=== PATIENT | female | born 1995 | race Caucasian/White ===

== ENCOUNTER 2018-03-14 13:28 | Emergency (ER) | payer SELFPAY ==
[2018-03-14 13:34] VITALS: BP 126/72
--- NOTE | 2018-03-14 13:37 | ER Document Report ---
HPI - HPI Patient complains to provider of: poison paolo Onset: Yesterday Onset/Duration: Gradual Pain Level: 3 Context: 22 yo female believes she has poison paolo after working in yard, pulling luz. Itchy right face and some on arms, and buttocks. Associated Symptoms: None Exacerbated by: Denies Relieved by: Denies Similar symptoms previously: Yes Recently seen / treated by doctor: No - ROS ROS below otherwise negative: Yes Systems Reviewed and Negative: Yes All other systems reviewed and negative Past Medical History - General Information source: Patient - Social History Smoking Status: Current Every Day Smoker Frequency of alcohol use: None Drug Abuse: None Lives with: Spouse/Significant other Family History: Reviewed & Not Pertinent - Medical History Medical History: Negative Surgical Hx: Negative - Immunizations Immunizations up to date: Yes Hx Diphtheria, Pertussis, Tetanus Vaccination: Yes Vertical Provider Document - CONSTITUTIONAL Agree With Documented VS: Yes Exam Limitations: No Limitations General Appearance: No Apparent Distress - INFECTION CONTROL TRAVEL OUTSIDE OF THE [place] IN LAST 30 DAYS: No - HEENT HEENT: Normocephalic - NECK Neck: Supple - MUSCULOSKELETAL/EXTREMETIES Musculoskeletal/Extremeties: MAEW - NEURO Level of Consciousness: Awake - DERM Integumentary: Rash - minimal red linear rash right face, upper arms- questionable poison paolo Course - Vital Signs Vital signs: Temp Pulse Resp BP Pulse Ox 98.5 F 80 16 126/72 H 98 03/14/18 13:33 03/14/18 13:33 03/14/18 13:33 03/14/18 13:33 03/14/18 13:33 Discharge - Discharge Clinical Impression: Poison paolo Condition: Good Disposition: HOME, SELF-CARE Instructions: Contact Dermatitis ([facility]), Use of Diphenhydramine Additional Instructions: steroid for 1 week to er if worse wash hands well to er if worse Prescriptions: Prednisone [Deltasone 10 mg Tablet] 10 mg PO ASDIR PRN #21 tablet PRN Reason: Referrals: ERIS ADAMS DO [ACTIVE STAFF] - Follow up as needed
== END 2018-03-14 13:43 | disposition home or self-care (01) ==
LOC: ER 13:28
DX: L23.7 Allergic contact dermatitis due to plants, except food (principal); F17.200 Nicotine dependence, unspecified, uncomplicated
CPT/HCPCS: 99282

== ENCOUNTER 2018-04-05 12:16 | Emergency (ER) | payer SELFPAY ==
[2018-04-05 12:29] VITALS: BP 129/82
[2018-04-05] MEDS ORDERED: DIPH/PERTUSS(ACELL)/TETANUS VAC/PF 0.5 ML SYR (>=10YO) IM ONE (13:24)
[2018-04-05] MEDS ORDERED: CEPHALEXIN 500 MG CAPSULE PO ONE (13:24)
[2018-04-05] MEDS ORDERED: LIDOCAINE 1% INJ-PF (10 MG/ML) 30 ML SDV INJ ONE (13:24)
[2018-04-05] MEDS ORDERED: HYDROCODONE/ACETAMINOPHEN 5-325 MG TABLET PO ONE (13:24)
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
== END 2018-04-05 15:31 | disposition home or self-care (01) ==
LOC: ER 12:16
DX: S01.311A Laceration without foreign body of right ear, initial encounter (principal); Y04.2XXA Assault by strike against or bumped into by another person, initial encounter; Y93.89 Activity, other specified; Y92.818 Other transport vehicle as the place of occurrence of the external cause
CPT/HCPCS: 99283; 90471; 90715; 12011; J3490

== ENCOUNTER → 2018-07-18 | Outpatient (CLI) | payer MEDICAID ==
--- NOTE | 2018-07-18 14:14 | RADIOLOGY REPORT (SQ) ---
EXAM DESCRIPTION: U/S [id number] TRNABD 1GES W/ODOP COMPLETED DATE/TIME: 07/18/2018 1:35 pm REASON FOR STUDY: Z34.81 ENCOUNTER FOR SUPRVSN OF NORMAL , FIRST TRIMESTER Z34.81 ENCOUNTE R FOR SUPRVSN OF NORMAL , FIRST TRIM COMPARISON: None. TECHNIQUE: Transabdominal static and realtime grayscale images acquired of the pelvis. Additional se lected spectral and color Doppler images recorded. All images stored on PACs. bHCG: Not available. CLINICAL DATES: EGA LIMITATIONS: None. FINDINGS: FETUS: Living intrauterine . ULTRASOUND EGA: 8 weeks 3 days ULTRASOUND FLAKO: 02/24/2019 CRL: 1.9 cm FHR: 0 beats per minute. SUBCHORIONIC BLEED: No. SIZE OF BLEED: Not applicable. UTERUS: No masses. No anomalies. CERVICAL LENGTH: 2.8 cm. Closed. RIGHT ADNEXA: Normal ovary with normal vascular flow. No adnexal free fluid. No adnexal masses. LEFT ADNEXA: Ovary not identified. No adnexal free fluid. No adnexal masses. FREE FLUID: None. OTHER: No other significant finding. IMPRESSION: Concerning for demise at 8 weeks. EGA 8 weeks 3 days Trimester of : First - 0 to 13 weeks. COMMENT: Patient declined transvaginal evaluation. TECHNICAL DOCUMENTATION: JOB ID: [id number] [employer]- All Rights Reserved rev Reading location - IP/workstation name: [email or web address]
== END ==
LOC: RAD 14:08
PROVIDERS: ATTEND Nurse Practitioner
DX: Z34.81 Encounter for supervision of other normal pregnancy, first trimester (principal)
CPT/HCPCS: 76801

== ENCOUNTER → 2018-07-20 | Outpatient (CLI) | payer MEDICAID | LOC: OCH 14:18 | DX: O02.0 Blighted ovum and nonhydatidiform mole (principal) | CPT/HCPCS: 36415; 84702 ==

== ENCOUNTER 2018-10-13 19:01 | Emergency (ER) | payer MEDICAID ==
[2018-10-13 19:54] LABS: BACTERIA (WET MOUNT) 3+ BACTERIA SEEN; EPITHELIALS (WET MOUNT) 3+ EPITHELIALS SEEN; T.VAGINALIS (WET MOUNT) NO TRICHOMONAS SEEN; WBCS (WET MOUNT) RARE WBCS SEEN; YEAST (WET MOUNT) NO YEAST SEEN
[2018-10-13 20:01] LABS: APPEARANCE,URINE CLOUDY; BILIRUBIN,URINE NEGATIVE (NEGATIVE); GLUCOSE, URINE NEGATIVE (NEGATIVE); KETONES,URINE NEGATIVE (NEGATIVE); LEUKOCYTE ESTERASE,URINE NEGATIVE (NEGATIVE); NITRITE,URINE POSITIVE (NEGATIVE); PROTEIN,URINE NEGATIVE (NEGATIVE); URINE SPECIFIC GRAVITY 1.014
[2018-10-13 20:02] LABS: COLOR,URINE DARK YELLOW
[2018-10-13] MEDS ORDERED: CEPHALEXIN 500 MG CAPSULE PO ONE (20:16)
[2018-10-13] MEDS ORDERED: PHENAZOPYRIDINE HCL 100 MG TABLET PO ONE (20:18)
--- NOTE | 2018-10-13 20:19 | ER Document Report ---
HPI - HPI Time Seen by Provider: 10/13/18 19:23 Pain Level: 2 Notes: Patient is an otherwise healthy 22-year-old female who presents with chief complaint of dysuria and vaginal swelling. She reports this is been going on for approximately 2 days. She states she thought she had a urinary tract infection so she started taking Azo. She denies any fever or vaginal discharge. - CONSTITUTIONAL Constitutional: DENIES: Fever, Chills - URINARY Urinary: REPORTS: Frequency - REPRODUCTIVE Reproductive: REPORTS: Abnormal bleeding / discharge - discharge/irritation. DENIES: :, Postmenopausal Past Medical History - General Information source: Patient - Social History Smoking Status: Never Smoker Frequency of alcohol use: None Drug Abuse: None Family History: Reviewed & Not Pertinent Patient has suicidal ideation: No Patient has homicidal ideation: No - Medical History Medical History: Negative Renal/ Medical History: Denies: Hx Peritoneal Dialysis Surgical Hx: Negative Past Surgical History: Denies: Hx Abdominal Surgery - Immunizations Immunizations up to date: Yes Hx Diphtheria, Pertussis, Tetanus Vaccination: Yes Vertical Provider Document - CONSTITUTIONAL Notes: PHYSICAL EXAMINATION: GENERAL: Well-appearing, well-nourished and in no acute distress. HEAD: Atraumatic, normocephalic. EYES: Pupils equal round and reactive to light, extraocular movements intact, conjunctiva are normal. ENT: Nares patent, oropharynx clear without exudates. Moist mucous membranes. NECK: Normal range of motion, supple without lymphadenopathy LUNGS: Breath sounds clear to auscultation bilaterally and equal. No wheezes rales or rhonchi. HEART: Regular rate and rhythm without murmurs ABDOMEN: Soft, nontender, nondistended abdomen. No guarding, no rebound. No masses appreciated. Female : No CVA tenderness. Musculoskeletal: Normal range of motion, no pitting or edema. No cyanosis. NEUROLOGICAL: Cranial nerves grossly intact. Normal speech, normal gait. Normal sensory, motor exams PSYCH: Normal mood, normal affect. SKIN: Warm, Dry, normal turgor, no rashes or lesions noted. - INFECTION CONTROL TRAVEL OUTSIDE OF THE [place] IN LAST 30 DAYS: No Course - Re-evaluation Re-evalutation: Urinalysis positive for nitrates. Will place patient on p.o. antibiotics for urinary tract infection pending culture. Chlamydia and gonorrhea are also pending. Patient states she is not concerned for any STDs so she does not want prophylactic treatment. - Vital Signs Vital signs: Temp Pulse Resp BP Pulse Ox 98.3 F 91 16 132/77 H 99 10/13/18 19:08 10/13/18 19:08 10/13/18 19:08 10/13/18 19:08 10/13/18 19:08 - Laboratory Laboratory results interpreted by me: 10/13/18 19:37 Urine Nitrite POSITIVE H Urine Urobilinogen 4.0 H Discharge - Discharge Clinical Impression: Urinary tract infection Qualifiers: Urinary tract infection type: site unspecified Hematuria presence: without hematuria Qualified Code(s): N39.0 - Urinary tract infection, site not specified Condition: Stable Disposition: HOME, SELF-CARE Additional Instructions: URINARY TRACT INFECTION: Your evaluation indicates that you have a urinary tract infection. This is due to germs growing in the bladder. This is a common problem. This infection usually responds quickly to antibiotics. Your antibiotic should be taken exactly as prescribed. Drink plenty of fluids -- three to four quarts a day. Occasionally, a bladder anesthetic will be prescribed to help stop the feeling of urgency until the antibiotic has a chance to clear the infection. This may cause your urine to be dark orange. Certain urine infections require a culture. If the doctor obtained a culture, the results will be back in two days. You should call to see if a change in treatment is needed. A repeat urinalysis after you finish treatment is often recommended. The physician will let you know if further testing is required. Call the doctor if you develop fever, chills, flank pain, inability to urinate, or blood in the urine. ANTIBIOTIC THERAPY: You have been given an antibiotic prescription. It's important that you take all the medication, unless instructed otherwise by your physician. Failure to complete the entire course can result in relapse of your condition. Common side effects of antibiotics include nausea, intestinal cramping, or diarrhea. Women may develop vaginal yeast infections, and babies can get yeast (thrush) in the mouth following the use of antibiotics. Contact your physician if you develop significant side effects from this medication. Allergy to this antibiotic can result in hives, wheezing, faintness, or itching. If symptoms of allergy occur, stop the medication and call the doctor. CEPHALEXIN: The antibiotic you've been prescribed is a member of the cephalosporin class. This type of antibiotic covers a wide variety of infections, including those of the skin, lungs, and urinary tract. It's useful for staph infections. This antibiotic is slightly similar to the penicillin family. In rare cases , a person who is allergic to penicillin will also be allergic to this medication. If you have had a severe allergic reaction to penicillin, and have not taken this antibiotic since that time, notify your doctor. Antibiotics which cover many germs ("broad spectrum" antibiotics) are more likely to cause diarrhea or "yeast" infections. Women prone to vaginal yeast problems may suffer an attack after taking this antibiotic. In infants, oral thrush (white spots "stuck" on the cheek) or yeast diaper rash may result. See your doctor if these problems occur. Call at once if you develop itching, hives , shortness of breath, or lightheadedness. URINARY ANESTHETIC AGENT: You have been given a medication (Pyridium) for urinary tract discomfort. This medicine numbs the lining of the bladder and urethra, resulting in less pain, burning, and urgency. You may take it as needed, according to instructions. When the symptoms resolve, you can stop this medication (be sure to continue any other medications the doctor has given you). This medicine turns the urine a dark orange. It may stain underwear. Occasionally, it can cause nausea. Return for evaluation if there are any unexpected effects, such as itching, hives, or shortness of breath. FOLLOW-UP CARE: If you have been referred to a physician for follow-up care, call the physician s office for an appointment as you were instructed or within the next two days. If you experience worsening or a significant change in your symptoms, notify the physician immediately or return to the Emergency Department at any time for re-evaluation. Prescriptions: Cephalexin [Cephalexin 500 MG Tablet] 1 tab PO QID #40 tablet Phenazopyridine HCl [Pyridium 100 Mg Tablet] 100 mg PO TID #9 tablet Forms: Return to Work
[2018-10-13 20:41] VITALS: BP 104/78
[2018-10-13 21:19] LABS: CHLAM PCR DETECTED (NOT DETECT); GON PCR NOT DETECTED (NOT DETECT)
== END 2018-10-13 20:35 | disposition home or self-care (01) ==
LOC: ER 19:01
DX: N39.0 Urinary tract infection, site not specified (principal); N89.8 Other specified noninflammatory disorders of vagina
CPT/HCPCS: 99283; 87210; 81001; 87491; 87591; J3490

== ENCOUNTER 2018-11-17 20:29 | Emergency (ER) | payer MEDICAID ==
[2018-11-17 22:31] LABS: AMORPHOUS SEDIMENT,URINE TRACE /HPF; APPEARANCE,URINE CLOUDY; BILIRUBIN,URINE NEGATIVE (NEGATIVE); CALCIUM OXALATE CRYSTALS,URINE MODERATE /HPF; COLOR,URINE YELLOW; GLUCOSE, URINE NEGATIVE (NEGATIVE); KETONES,URINE NEGATIVE (NEGATIVE); LEUKOCYTE ESTERASE,URINE MODERATE (NEGATIVE); NITRITE,URINE NEGATIVE (NEGATIVE); PROTEIN,URINE 30 mg/dL (NEGATIVE); URINE SPECIFIC GRAVITY 1.024; UROBILINOGEN,URINE NEGATIVE mg/dL (<2.0)
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
[2018-11-17] MEDS ORDERED: CEFTRIAXONE INJ 250 MG VIAL IM ONE (23:24)
[2018-11-17] MEDS ORDERED: AZITHROMYCIN 250 MG TABLET PO ONE (23:24)
[2018-11-18 00:13] VITALS: BP 129/82
== END 2018-11-18 00:14 | disposition home or self-care (01) ==
LOC: ER 20:29
DX: N30.01 Acute cystitis with hematuria (principal); R39.15 Urgency of urination; R30.0 Dysuria
CPT/HCPCS: 99283; 96372; 81001; Q0144; J0696

== ENCOUNTER 2019-01-31 14:54 | Emergency (ER) | payer MEDICAID | END 2019-01-31 15:19 | disposition left against medical advice (07) | LOC: ER 14:54 | DX: Z53.21 Procedure and treatment not carried out due to patient leaving prior to being seen by health care provider (principal); N93.9 Abnormal uterine and vaginal bleeding, unspecified ==

== ENCOUNTER 2019-06-24 11:49 | Emergency (ER) | payer MEDICAID ==
--- NOTE | 2019-06-24 13:10 | ER Document Report ---
HPI - HPI Time Seen by Provider: 06/24/19 13:05 Pain Level: 3 Notes: Patient is an otherwise healthy 23-year-old female presenting to the emergency department chief complaint of right posterior knee pain. Patient denies any direct trauma. She denies any history of DVT. She reports the pain started yesterday. She has not taken any medication for this. She reports the pain feels like a throbbing pain and is constant and severe. - REPRODUCTIVE Reproductive: DENIES: : Past Medical History - General Information source: Patient - Social History Smoking Status: Never Smoker Frequency of alcohol use: None Drug Abuse: None Family History: Reviewed & Not Pertinent - Medical History Medical History: Negative Renal/ Medical History: Denies: Hx Peritoneal Dialysis Surgical Hx: Negative Past Surgical History: Denies: Hx Abdominal Surgery - Immunizations Immunizations up to date: Yes Hx Diphtheria, Pertussis, Tetanus Vaccination: Yes Vertical Provider Document - CONSTITUTIONAL Notes: PHYSICAL EXAMINATION: GENERAL: Well-appearing, well-nourished and in no acute distress. HEAD: Atraumatic, normocephalic. EYES: Pupils equal round extraocular movements intact, conjunctiva are normal. ENT: Nares patent NECK: Normal range of motion LUNGS: No respiratory distress Musculoskeletal: Normal range of motion to right leg, no swelling, erythema or ecchymosis noted. Tenderness to palpation to posterior knee. NEUROLOGICAL: Normal speech, normal gait. PSYCH: Normal mood, normal affect. SKIN: Warm, Dry, normal turgor, no rashes or lesions noted. - INFECTION CONTROL TRAVEL OUTSIDE OF THE [place] IN LAST 30 DAYS: No Course - Re-evaluation Re-evalutation: Knee X-Ray 06/24/19 14:29 IMPRESSION: NEGATIVE STUDY OF THE RIGHT KNEE. NO RADIOGRAPHIC EVIDENCE OF ACUTE INJURY. An x-ray and a venous Doppler were obtained of this patient. Both are negative. Likely musculoskeletal strain. This was discussed with the patient. Patient does not understand how she could have a musculoskeletal strain if she did not have a direct injury. She does agree to try conservative measures of taking ibuprofen, ice, elevation as outlined in her discharge papers. I did explain to patient that if pain continues she can follow-up with orthopedics. The patient's emergency department workup and current diagnosis were explained to the patient and or family. Follow-up instructions were provided. Medications if prescribed were discussed. Instructions for when to return to the emergency department including specific worrisome symptoms were discussed with the patient and/or family. - Vital Signs Vital signs: Temp Pulse Resp BP Pulse Ox 97.9 F 78 18 136/71 H 100 06/24/19 11:52 06/24/19 11:52 06/24/19 11:52 06/24/19 11:52 06/24/19 11:52 Discharge - Discharge Clinical Impression: Musculoskeletal strain Condition: Stable Disposition: HOME, SELF-CARE Additional Instructions: The x-ray of your leg and the venous Doppler ultrasound were both negative. There is no fracture dislocation of any bones in the venous Doppler ultrasound did not show any blood clots. I think your pain is most likely consistent with a musculoskeletal strain. Take ibuprofen 600 mg every 6 hours. Use the muscle relaxer as prescribed, do not drive while taking this medication. If pain does not improve over the next 2 to 3 days please call orthopedics to schedule follow-up appointment. Prescriptions: Cyclobenzaprine HCl [Flexeril 10 mg Tablet] 10 mg PO TIDP PRN #15 tab PRN Reason: Referrals: YONAS RUSSO DO [ACTIVE STAFF] - Follow up as needed
--- NOTE | 2019-06-24 15:03 | RADIOLOGY REPORT (SQ) ---
EXAM DESCRIPTION: KNEE RIGHT 4 VIEWS COMPLETED DATE/TIME: 06/24/2019 2:46 pm REASON FOR STUDY: pain right knee posterior COMPARISON: None. NUMBER OF VIEWS: Four views. TECHNIQUE: AP, lateral, and both oblique radiographic images acquired of the right knee. LIMITATIONS: None. FINDINGS: MINERALIZATION: Normal. BONES: No acute fracture or dislocation. No worrisome bone lesions. JOINT: No effusion. SOFT TISSUES: No soft tissue swelling. No radio-opaque foreign body. OTHER: No other significant finding. IMPRESSION: NEGATIVE STUDY OF THE RIGHT KNEE. NO RADIOGRAPHIC EVIDENCE OF ACUTE INJURY. TECHNICAL DOCUMENTATION: JOB ID: [id number]- All Rights Reserved Reading location - IP/workstation name: [email or web address]
--- NOTE | 2019-06-24 15:15 | XCELERA REPORT ---
[address] [place] [facility] [place] [address] Lower Extremity Venous Evaluation Procedure: Color flow and duplex imaging of the veins of the right lower extremity as well as the left Common Femoral vein. Right Sided Venous Evaluation Normal vessel filling wall to wall, compression and augmentation as well as Colour flow down to the infrageniculate veins. Left Sided Venous Evaluation The left common femoral vein is fully compressible. Spontaneous and phasic flow is present in the left common femoral vein. Interpretation Summary No duplex evidence of DVT or obstruction in the right lower extremity nor in the left Common Femoral vein. Name: SUSHMA PAYAN Age: 23 yrs Gender: Female : 1995 Patient Status: Emergency Patient Location: ER Study Date: 06/24/2019 02:06 PM Reason For Study: RLE pain behind knee Ordering Physician: GALE LOPEZ Performed By: Bianca De Paz : GALE LOPEZ > Duncan Jaime
[2019-06-24] MEDS ORDERED: CYCLOBENZAPRINE HCL 10 MG TABLET PO ONE (15:48)
[2019-06-24 16:02] VITALS: BP 132/73
== END 2019-06-24 16:39 | disposition home or self-care (01) ==
LOC: ER 11:49
DX: S86.911A Strain of unspecified muscle(s) and tendon(s) at lower leg level, right leg, initial encounter (principal); M25.561 Pain in right knee; X58.XXXA Exposure to other specified factors, initial encounter
CPT/HCPCS: 93971 ×2; 73564; J3490; 99284

== ENCOUNTER → 2019-10-22 | Outpatient (CLI) | payer MEDICAID ==
--- NOTE | 2019-10-22 15:04 | RADIOLOGY REPORT (SQ) ---
EXAM DESCRIPTION: U/S [id number] TRNABD 1GES W/ODOP COMPLETED DATE/TIME: 10/22/2019 10:47 am REASON FOR STUDY: ENCOUNTER FOR SUPRVSN OF NORMAL , FIRST TRIMESTER Z34.81 ENCOUNTER FOR S UPRVSN OF NORMAL , FIRST TRIM COMPARISON: None. TECHNIQUE: Transabdominal static and realtime grayscale images acquired of the pelvis. Additional se lected spectral and color Doppler images recorded. All images stored on PACs. bHCG: Not available. CLINICAL DATES: 12 week 2 day LIMITATIONS: None. FINDINGS: FETUS: Single Living intrauterine . ULTRASOUND EGA: 11 week 6 day ULTRASOUND FLAKO: 05/06/2020 EFW: Not applicable less than 20 weeks. CRL: 5.1 cm FHR: 160 beats per minute. SURVEY: Not performed. AMNIOTIC FLUID: Grossly adequate. PLACENTA: Incompletely developed. No hemorrhage. SUBCHORIONIC BLEED: None. SIZE OF BLEED: Not applicable. UTERUS: No masses. No anomalies. CERVICAL LENGTH: 3.2 cm. Closed. RIGHT ADNEXA: Ovary not identified due to poor acoustical window. No adnexal free fluid. No adnexal masses. LEFT ADNEXA: Ovary not identified due to poor acoustical window. No adnexal free fluid. No adnexal masses. FREE FLUID: None. OTHER: No other significant finding. IMPRESSION: LIVING INTRAUTERINE . EGA 11 week 6 day Trimester of : First trimester - 0 to 13 weeks. TECHNICAL DOCUMENTATION: JOB ID: [id number] [employer]- All Rights Reserved rev Reading location - IP/workstation name: [email or web address]
== END ==
LOC: RAD 10:26
PROVIDERS: ATTEND Nurse Practitioner Family
DX: Z34.81 Encounter for supervision of other normal pregnancy, first trimester (principal)
CPT/HCPCS: 76801

== ENCOUNTER → 2019-12-20 | Outpatient (CLI) | payer MEDICAID ==
--- NOTE | 2019-12-20 15:04 | RADIOLOGY REPORT (SQ) ---
EXAM DESCRIPTION: U/S OB 14+ TRNABD 1GES W/O DOP COMPLETED DATE/TIME: 12/20/2019 1:55 pm REASON FOR STUDY: Z34.82 ENCOUNTER FOR SUPRVSN OF NORMAL , SECOND TRIMESTER Z34.82 ENCOUNT ER FOR SUPRVSN OF NORMAL , SECOND TRI COMPARISON: 10/22/2019 TECHNIQUE: Static and Dynamic grayscale imaging performed of gravid uterus using transabdominal appr oach. Additional selected color Doppler and spectral images recorded. All stored on PACS. LIMITATIONS: None. FINDINGS: FETUSES SEEN:1 EGA: 20 weeks 2 days Calculated using BPD,FL,HC,AC documented on images. No significant discrepancy with clinical dates. FLAKO: 05/06/2020 EFW: 367+/- 54 grams PERCENTILE: Not calculated. REDD: 9.6 cm. PLACENTA: Posterior into the right. Grade 1. PRESENTATION: Breech. ANATOMY: HEART RATE: 153 beats per minute. FOUR CHAMBER HEART: Visualized. THREE VESSEL CORD: Yes. CORD INSERTION: Visualized. KIDNEYS AND BLADDER: Visualized. Appear normal. STOMACH: Visualized. Appears normal. SPINE: Normal as visualized. BRAIN AND LATERAL VENTRICLES: Visualized. Appear normal. OTHER: No other significant finding. MATERNAL ADNEXA: Maternal ovaries not visualized. CERVICAL LENGTH: Not able to be measured accurately. Closed. OTHER: No other significant finding. IMPRESSION: LIVING INTRAUTERINE . ESTIMATED GESTATIONAL AGE 20 weeks 2 days. NO VISUALIZED ANOMALIES. Trimester of : Second trimester - 13 weeks 1 day to 27 weeks 6 days. TECHNICAL DOCUMENTATION: JOB ID: [id number] [employer]- All Rights Reserved Reading location - IP/workstation name: [email or web address]
== END ==
LOC: RAD 12:53
PROVIDERS: ATTEND Nurse Practitioner Family
DX: Z34.82 Encounter for supervision of other normal pregnancy, second trimester (principal)
CPT/HCPCS: 76805

== ENCOUNTER 2020-05-04 16:18 | Outpatient (CLI) | payer MEDICAID ==
--- NOTE | 2020-05-04 17:06 | Non Stress Test Report ---
Non Stress Test Datetime Report Generated by CPN: 05/04/2020 17:06 DEMOGRAPHIC Test Number: 1 EGA NST: 40.1 EGA NST: 40.1 INDICATION Indication for Study (NST) Other: postdates surveillence URINE RESULTS Urine Ketones - NST: Positive MONITORING Monitor Explained: Monitor Explained; Test Explained; Patient Verbalized Understanding Time on Monitor: 05/04/2020 16:30 Time off Monitor: 05/04/2020 17:00 NST Duration: 30 NST INTERVENTIONS NST Interventions: PO Hydration Physician Notified NST: Dr. Saucedo BABY A: [id number] BABY A Movement : Present Contraction Frequency : intermittent FHR Baseline : 135 Accelerations : 15X15 Decelerations : None Variability : Moderate 6-25bpm NST Review: Meets Criteria for Reactive NST NST Review and Verified By : VANESSA Allen NST Results: Reactive NST REPORT Report Trigger: Send Report
--- NOTE | 2020-05-04 18:56 | RADIOLOGY REPORT (SQ) ---
EXAM DESCRIPTION: U/S OB LIMITED IMAGES COMPLETED DATE/TIME: 05/04/2020 5:37 pm REASON FOR STUDY: REDD COMPARISON: 12/20/2019 TECHNIQUE: Limited transabdominal grayscale ultrasound for evaluation of specific requested obstetri jose alberto parameters. LIMITATIONS: None. FINDINGS: CERVICAL LENGTH: Not seen. REDD: 19.1 cm fluid is clear. . FHR: 153 beats per minute. PRESENTATION: Cephalic. PLACENTA: Posterior. Not well seen. ANATOMY: Not assessed OTHER: Gestational age 40 weeks 1 day IMPRESSION: Amniotic fluid is at the upper limit of normal 19.1 cm REDD. Fluid is clear. Findings a s described. Trimester of : Third trimester - 28 weeks to delivery. TECHNICAL DOCUMENTATION: JOB ID: [id number] 2010 [employer]- All Rights Reserved Reading location - IP/workstation name: [email or web address]
== END 2020-05-04 17:44 | disposition home or self-care (01) ==
LOC: LC 16:18
PROVIDERS: ATTEND Obstetrics & Gynecology
DX: O48.0 Post-term pregnancy (principal); Z3A.40 40 weeks gestation of pregnancy
CPT/HCPCS: 59025; 76815

== ENCOUNTER 2020-05-11 14:47 | Outpatient (CLI) | payer MEDICAID ==
[2020-05-11 15:24] LABS: APPEARANCE,URINE SLIGHTLY-CLOUDY; BILIRUBIN,URINE NEGATIVE (NEGATIVE); COLOR,URINE AMBER; GLUCOSE, URINE NEGATIVE (NEGATIVE); KETONES,URINE NEGATIVE (NEGATIVE); LEUKOCYTE ESTERASE,URINE MODERATE (NEGATIVE); NITRITE,URINE NEGATIVE (NEGATIVE); PROTEIN,URINE 30 mg/dL (NEGATIVE); URINE SPECIFIC GRAVITY 1.024
[2020-05-11 15:42] LABS: URINE AMPHETAMINES SCREEN NEGATIVE; URINE BARBITURATES SCREEN NEGATIVE; URINE BENZODIAZEPINES SCREEN NEGATIVE; URINE COCAINE SCREEN NEGATIVE; URINE METHADONE SCREEN NEGATIVE; URINE PHENCYCLIDINE SCREEN NEGATIVE
[2020-05-11 15:51] LABS: URINE MARIJUANA (THC) SCREEN UNCONFIRMED POSITIVE
--- NOTE | 2020-05-11 16:53 | Non Stress Test Report ---
Non Stress Test Datetime Report Generated by CPN: 05/11/2020 16:52 DEMOGRAPHIC Test Number: 2 EGA NST: 41.1 INDICATION Indication for Study (NST) Other: postdates 41.1 VITAL SIGNS Temperature - NST: 98.8 Pulse - NST: 122 RESP - NST: 16 NBPSYS NST: 125 NBPDIA NST: 75 MONITORING Monitor Explained: Monitor Explained; Test Explained; Patient Verbalized Understanding Time on Monitor: 05/11/2020 15:06 Time off Monitor: 05/11/2020 16:18 NST Duration: 72 NST INTERVENTIONS NST Interventions: PO Hydration; Reposition Patient Physician Notified NST: K Boles Physician Notified NST: K Boles CNM BABY A: [id number] BABY A Movement : Present Contraction Frequency : irreg FHR Baseline : 145 Accelerations : 15X15 Decelerations : None Variability : Moderate 6-25bpm NST Review: Meets Criteria for Reactive NST NST Review and Verified By : Ashley CamP RNC NST Results: Reactive NST REPORT Report Trigger: Send Report
[2020-05-11 17:11] LABS: BACTERIA (WET MOUNT) 4+ BACTERIA SEEN; EPITHELIALS (WET MOUNT) 4+ EPITHELIALS SEEN; RBCS (WET MOUNT) 1+ RBCS SEEN; T.VAGINALIS (WET MOUNT) NO TRICHOMONAS SEEN; WBCS (WET MOUNT) 3+ WBCS SEEN; YEAST (WET MOUNT) NO YEAST SEEN
--- NOTE | 2020-05-11 17:29 | RADIOLOGY REPORT (SQ) ---
EXAM DESCRIPTION: U/S OB LIMITED IMAGES COMPLETED DATE/TIME: 05/11/2020 5:10 pm REASON FOR STUDY: postdates REDD COMPARISON: 05/04/2020 TECHNIQUE: Limited transabdominal grayscale ultrasound for evaluation of specific requested obstetri jose alberto parameters. LIMITATIONS: None. FINDINGS: CERVICAL LENGTH: 2.1 cm. Closed. REDD: 17.8 cm with Vernix. LVP--- 7.6 x 6.2 cm FHR: 150 beats per minute. PRESENTATION: Cephalic. PLACENTA: Posterior. ANATOMY: Not assessed OTHER: No other significant findings. IMPRESSION: LIMITED OBSTETRICAL ULTRASOUND WITH MEASURED PARAMETERS DELINEATED ABOVE. Trimester of : Third trimester - 28 weeks to delivery. TECHNICAL DOCUMENTATION: JOB ID: [id number] 2010 [employer]- All Rights Reserved Reading location - IP/workstation name: [email or web address]
[2020-05-11 18:37] LABS: CHLAM PCR NOT DETECTED (NOT DETECT)
== END 2020-05-11 18:55 | disposition home or self-care (01) ==
LOC: LC 14:47
PROVIDERS: ATTEND Obstetrics & Gynecology
DX: O48.0 Post-term pregnancy (principal); Z3A.41 41 weeks gestation of pregnancy
CPT/HCPCS: 59025; 87210; 81005; 80307; 87491; 87591; 76815; G0480 ×2; 80349

== ENCOUNTER 2020-05-13 01:45 | Inpatient (IN) | payer MEDICAID ==
[2020-05-13 02:41] LABS: APPEARANCE,URINE CLOUDY; BILIRUBIN,URINE NEGATIVE (NEGATIVE); COLOR,URINE YELLOW; GLUCOSE, URINE NEGATIVE (NEGATIVE); KETONES,URINE NEGATIVE (NEGATIVE); LEUKOCYTE ESTERASE,URINE TRACE (NEGATIVE); NITRITE,URINE NEGATIVE (NEGATIVE); PROTEIN,URINE NEGATIVE (NEGATIVE); URINE SPECIFIC GRAVITY 1.013; UROBILINOGEN,URINE NEGATIVE mg/dL (<2.0)
[2020-05-13] MEDS ORDERED: OXYTOCIN 10 UNIT/ML VIAL ONE (02:57)
[2020-05-13] MEDS ORDERED: OXYTOCIN/0.9 % SODIUM CHLORIDE 30 UNIT/500 ML RTUINJ ONE (02:57)
[2020-05-13] MEDS ORDERED: MISOPROSTOL 0.2 MG TABLET ONE (02:57)
[2020-05-13] MEDS ORDERED: LIDOCAINE 1% INJ-PF (10 MG/ML) 30 ML SDV ONE (02:57)
[2020-05-13] MEDS ORDERED: FENTANYL/BUPIVACAINE/NS/PF 300 MCG/150 ML RTUINJ EPI ONE (02:58)
[2020-05-13] MEDS ORDERED: EPHEDRINE SULFATE INJ 50 MG/1 ML AMPULE ONE (02:58)
[2020-05-13] MEDS ORDERED: BUPIVACAINE HCL 0.25 % INJ/PF (2.5 MG/1 ML) 30 ML VIAL ONE (02:58)
[2020-05-13 02:59] LABS: ABSOLUTE EOSINOPHILS # (AUTO) 0.1 10^3/uL (0.0-0.6); ABSOLUTE LYMPHOCYTES (AUTO) 1.9 10^3/uL (0.5-4.7); ABSOLUTE MONOCYTES (AUTO) 0.6 10^3/uL (0.1-1.4); ABSOLUTE NEUT (AUTO) 4.5 10^3/uL (1.7-8.2); BASOPHILS % (AUTO) 0.6 % (0-2); EOSINOPHILS % (AUTO) 0.7 % (0-6); HEMATOCRIT 34.4 % (36.0-47.0); HEMOGLOBIN 11.4 g/dL (12.0-15.5); LYMPHOCYTES % (AUTO) 26.9 % (13-45); MEAN CORPUSCULAR HEMOGLOBIN 27.1 pg (27.0-33.4); MEAN CORPUSCULAR HGB CONC 33.1 g/dL (32.0-36.0); MEAN CORPUSCULAR VOLUME 82 fl (80-97); MONOCYTES % (AUTO) 8.2 % (3-13); PLATELET COUNT 173 10^3/uL (150-450); RED CELL DISTRIBUTION WIDTH 16.7 % (11.5-14.0); SEGMENTED NEUTROPHILS % (AUTO) 63.6 % (42-78); TOTAL CELLS COUNTED % (AUTO) 100 %; WHITE BLOOD COUNT 7.1 10^3/uL (4.0-10.5)
[2020-05-13 03:08] LABS: URINE AMPHETAMINES SCREEN NEGATIVE; URINE BARBITURATES SCREEN NEGATIVE; URINE BENZODIAZEPINES SCREEN NEGATIVE; URINE COCAINE SCREEN NEGATIVE; URINE MARIJUANA (THC) SCREEN NEGATIVE; URINE METHADONE SCREEN NEGATIVE; URINE PHENCYCLIDINE SCREEN NEGATIVE
[2020-05-13 04:08] LABS: CHLAM PCR NOT DETECTED (NOT DETECT)
[2020-05-13] MEDS ORDERED: AZITHROMYCIN INJ 500 MG VIAL IV ONE (04:38)
--- NOTE | 2020-05-13 06:11 | Admission Physical ---
Datetime Report Generated by CPN: 05/13/2020 06:10 CURRENT ADMISSION Chief Complaint: Uterine Contractions Chief Complaint Other: Painful uterine contractions Admit Impression : Term, Intrauterine ; Active Labor Admit Plan: Admit to Unit; Initiate Labor Protocol ALLERGIES Medication Allergies: No Medication Allergies: No Known Allergies (05/04/2020) Latex: No Latex Allergies Food Allergies: no Environmental Allergies: no OBSTETRICAL HISTORY EDC: 05/03/2020 00:00 : 3 Para: 1 SAB: 1 Livin Gestational Diabetes: No Rh Sensitization: No Incompetent Cervix: No KYLE: No Infertility: No ART Treatment: No Uterine Anomaly: No IUGR: No Hx Previous C/S: No Macrosomia: No Hx Loss/Stillborn: No PIH: No Hx : No Placenta Previa/Abruption: No Depression/PP Depression: No PTL/PROM: No Post Hemorrhage: No Current Procedures: Ultrasound SEE RECORDS Alcohol: No Marijuana : No Cocaine: No Other Illicit Drugs: No Cigarettes: Never Smoker. 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 Heart Disease: No Hosp/Surgery: No Autoimmune Disorder: No Anesthetic Complications: No Kidney Disease: Yes Abnormal Pap Smear: No Neuro/Epilepsy: No Psychiatric Disorders: No Other Medical Diseases: No Hepatitis/Liver Disease: No Significant Family History: No Varicosities/Phlebitis: No Trauma/Violence : No Thyroid Dysfunction: No INFECTIOUS HISTORY Gonorrhea: No Genital Herpes: Yes Chlamydia: Yes Tuberculosis: No Syphilis: No Hepatitis: No HIV/AIDS Exposure: No Rash or Viral Illness: No HPV: No PHYSICAL EXAM General: Normal HEENT: Normal Neurologic: Normal Thyroid: Normal Heart: Normal Lungs: Normal Breast: Normal Back: Normal Abdomen: Normal Genitourinary Exam: Normal Extremities: Normal DTRs: Normal Pelvic Type: Adequate Vital Signs: Reviewed VAGINAL EXAM Dilatation: 5 Effacement: 100 Station: 1 Contraction Comments: regular contractions Q 3 minutes MEMBRANES Membranes: Intact FETUS A EGA: 41.3 Monitoring: External US FHR- Baseline: 130 Variability: Moderate 6-25bpm Accelerations: 15X15 Decelerations: None FHR Category: Category I Presentation: Vertex Admit Comment: 41/3 wks EGA in active labor. Membranes intact -Admit to LDR -CEFM and toco -NPO and IVFs -GBS negative -Hx of chlamydia, SAMANTHA today was negative -Hx on one , anticipate PLANS FOR LABOR AND DELIVERY Labor and Delivery: None Pain Management: Epidural Feeding Preference: Breast Benefit of Breast Feed Discussed: Yes Circumcision: No INFORMED CONSENT Informed Consent Obtained: Vaginal Delivery; Risks, Benefits and Alternatives Discussed Signature: with User ID: [email or web address] : with User ID: [email or web address]
[2020-05-13] MEDS ORDERED: MEASLES,MUMPS&RUBELLA VACC/PF 0.5 ML VIAL SUBCUT PRN (06:37)
[2020-05-13] MEDS ORDERED: DIPH/PERTUSS(ACELL)/TETANUS VAC/PF 0.5 ML SYR (>=10YO) IM PRN (06:37)
[2020-05-13] MEDS ORDERED: NA PHOS,M-B/NA PHOS,DI-BA (ADULT) 133 ML ENEMA PR PRN (06:37)
[2020-05-13] MEDS ORDERED: ACETAMINOPHEN WITH CODEINE #3 TABLET PO PRN (06:37)
[2020-05-13] MEDS ORDERED: PSEUDOEPHEDRINE HCL 30 MG TABLET PO PRN (06:37)
[2020-05-13] MEDS ORDERED: BENZOCAINE/MENTHOL AEROSOL SPRAY 56 ML TOP PRN (06:37)
[2020-05-13] MEDS ORDERED: PROMETHAZINE HCL 25 MG SUPP.RECT PR PRN (06:37)
[2020-05-13] MEDS ORDERED: ZOLPIDEM TARTRATE 5 MG TABLET PO PRN (06:37)
[2020-05-13] MEDS ORDERED: PROMETHAZINE HCL INJ 25 MG/1 ML VIAL IV PRN (06:37)
[2020-05-13] MEDS ORDERED: PROMETHAZINE HCL 25 MG TABLET PO PRN (06:37)
[2020-05-13] MEDS ORDERED: DIPHENHYDRAMINE HCL 25 MG CAPSULE PO PRN (06:37)
[2020-05-13] MEDS ORDERED: OXYTOCIN/0.9 % SODIUM CHLORIDE 30 UNIT/500 ML RTUINJ IV PRN (06:37)
[2020-05-13] MEDS ORDERED: ACETAMINOPHEN 650 MG SUPP.RECT PR PRN (06:37)
[2020-05-13] MEDS ORDERED: GLYCERIN/WITCH HAZEL LEAF 1 EACH MED..WIPE TP PRN (06:37)
[2020-05-13] MEDS ORDERED: DIBUCAINE 1% OINTMENT 28 GM TP PRN (06:37)
[2020-05-13] MEDS ORDERED: MAGNESIUM HYDROXIDE SUSP 30 ML UDCUP PO PRN (06:37)
[2020-05-13] MEDS ORDERED: PRENATAL VITAMIN W DHA CAPSULE PO ONE (10:45)
[2020-05-13] MEDS ORDERED: DOCUSATE SODIUM 100 MG CAPSULE ONE (10:46)
[2020-05-13] MEDS ORDERED: SENNOSIDES/DOCUSATE 8.6-50 MG 1 EACH TABLET ONE (10:46)
[2020-05-13] MEDS ORDERED: FERROUS SULFATE 325 MG TABLET PO ONE (10:46)
[2020-05-13] MEDS ORDERED: IBUPROFEN 800 MG TABLET ONE (10:46)
[2020-05-13] MEDS ORDERED: FAMOTIDINE 20 MG TABLET ONE (10:47)
[2020-05-13] MEDS: PRENATAL VITAMIN W DHA CAPSULE PO SCH (10:50)
[2020-05-13] MEDS: DOCUSATE SODIUM 100 MG CAPSULE PO SCH ×2 (10:50→17:34)
[2020-05-13] MEDS: FAMOTIDINE 20 MG TABLET PO SCH ×2 (10:50→21:38)
[2020-05-13] MEDS: FERROUS SULFATE 325 MG TABLET PO SCH ×2 (10:50→17:34)
[2020-05-13] MEDS: SENNOSIDES/DOCUSATE 8.6-50 MG 1 EACH TABLET PO SCH (10:50)
[2020-05-13] MEDS: IBUPROFEN 800 MG TABLET PO SCH ×3 (10:51→21:38)
[2020-05-14] MEDS: IBUPROFEN 800 MG TABLET PO SCH ×3 (05:17→23:36)
[2020-05-14 08:24] LABS: HEMATOCRIT 34.3 % (36.0-47.0); HEMOGLOBIN 11.2 g/dL (12.0-15.5); MEAN CORPUSCULAR HEMOGLOBIN 27.1 pg (27.0-33.4); MEAN CORPUSCULAR HGB CONC 32.7 g/dL (32.0-36.0); MEAN CORPUSCULAR VOLUME 83 fl (80-97); PLATELET COUNT 165 10^3/uL (150-450); RED BLOOD COUNT 4.13 10^6/uL (3.72-5.28); RED CELL DISTRIBUTION WIDTH 16.5 % (11.5-14.0); WHITE BLOOD COUNT 8.5 10^3/uL (4.0-10.5)
[2020-05-14] MEDS: FERROUS SULFATE 325 MG TABLET PO SCH ×2 (10:22→17:17)
[2020-05-14] MEDS: FAMOTIDINE 20 MG TABLET PO SCH ×2 (10:22→23:36)
[2020-05-14] MEDS: DOCUSATE SODIUM 100 MG CAPSULE PO SCH ×2 (10:22→17:17)
[2020-05-14] MEDS: PRENATAL VITAMIN W DHA CAPSULE PO SCH (10:22)
[2020-05-14] MEDS: SENNOSIDES/DOCUSATE 8.6-50 MG 1 EACH TABLET PO SCH (10:22)
--- NOTE | 2020-05-14 10:35 | PDOC PROGRESS REPORT ---
Subjective-OB Progress Note for:: 05/14/20 - PP day #1, doing well, , no complaints, O+, Rubella Immune, Physical Exam (OB) Vital Signs: Temp Pulse Resp BP Pulse Ox 98.0 F 62 16 128/79 H 98 05/14/20 08:03 05/14/20 08:03 05/14/20 08:03 05/14/20 08:03 05/14/20 08:03 Intake & Output 05/13/20 05/14/20 05/15/20 06:59 06:59 06:59 Intake Total 1999 Balance 1999 Weight 82.7 kg - General General Appearance: Appears well, Alert In distress: None - PIH/Pre-Eclampsia Clonus: Negative Headache: Absent Epigastric Pain: No Visual Changes: No - Lochia Lochia Amount: Small 10-25 ml Lochia Color: Rubra/Red - Abdomen Description: Tender, Soft Hernia Present: No Fundal Description: Firm, Midline Fundal Height: u/u - u/2 - Respiratory Respiratory Status: No respiratory distress - Abdominal Distension: No distension Tenderness: Nontender - Genitourinary Genitourinary Note: voiding - Extremities Upper extremity: Normal inspection Lower extremities: Normal inspection - Neurological Cognition: Normal Orientation: AAOx4 - Psychological Associated symptoms: Normal affect, Normal mood - Skin Skin Temperature: Warm Skin Moisture: Dry Objective-Diagnostic Laboratory: 05/14/20 07:00 05/14/20 07:00 WBC 8.5 RBC 4.13 Hgb 11.2 L Hct 34.3 L MCV 83 MCH 27.1 MCHC 32.7 RDW 16.5 H Plt Count 165 Assessment and Plan(PN) - Assessment and Plan (1) Normal course Is this a current diagnosis for this admission?: Yes (2) Vaginal delivery Is this a current diagnosis for this admission?: Yes Plan:: Routine PP orders, ambulation encouraged - Time Spent with Patient Time with patient: Less than 15 minutes Medications reviewed and adjusted accordingly: Yes - Disposition Anticipated Discharge: Home Within: within 24 hours
[2020-05-14] MEDS: ACETAMINOPHEN WITH CODEINE #3 TABLET PO PRN ×2 (14:32→20:40)
[2020-05-15] MEDS: IBUPROFEN 800 MG TABLET PO SCH ×2 (06:06→13:57)
[2020-05-15] MEDS: PRENATAL VITAMIN W DHA CAPSULE PO SCH (09:09)
[2020-05-15] MEDS: DOCUSATE SODIUM 100 MG CAPSULE PO SCH ×2 (09:09→17:10)
[2020-05-15] MEDS: FAMOTIDINE 20 MG TABLET PO SCH (09:10)
[2020-05-15] MEDS: FERROUS SULFATE 325 MG TABLET PO SCH ×2 (09:10→17:10)
[2020-05-15] MEDS: SENNOSIDES/DOCUSATE 8.6-50 MG 1 EACH TABLET PO SCH (09:10)
--- NOTE | 2020-05-15 10:16 | PDOC PROGRESS REPORT ---
Subjective-OB Progress Note for:: 05/15/20 Subjective: Doing well, no c/o, ready to go home, , scant bleeding Physical Exam (OB) Vital Signs: Temp Pulse Resp BP Pulse Ox 98.1 F 71 16 131/88 H 100 05/15/20 07:30 05/15/20 07:30 05/15/20 07:30 05/15/20 07:30 05/15/20 07:30 Intake & Output 05/14/20 05/15/20 05/16/20 06:59 06:59 06:59 Intake Total 1999 1200 Balance 1999 1200 - PIH/Pre-Eclampsia Clonus: Negative Headache: Absent Epigastric Pain: No Visual Changes: No - Lochia Lochia Amount: Scant < 10 ml Lochia Color: Rubra/Red - Abdomen Description: Soft Hernia Present: No Fundal Description: Firm, Midline Fundal Height: u/u - u/2 Objective-Diagnostic Laboratory: 05/14/20 07:00 Assessment and Plan(PN) - Assessment and Plan (1) Normal course Is this a current diagnosis for this admission?: Yes (2) Vaginal delivery Is this a current diagnosis for this admission?: Yes - Time Spent with Patient Time with patient: Less than 15 minutes Medications reviewed and adjusted accordingly: Yes - Disposition Anticipated Discharge: Home Within: within 24 hours
--- NOTE | 2020-05-15 10:21 | PDOC DISCHARGE SUMMARY ---
Impression - Admit/DC Date/PCP Admission Date/Primary Care Provider: 05/13/20 03:33 LAWANDA ZAMAN MD Discharge Date: 05/15/20 - Discharge Diagnosis (1) Normal course Is this a current diagnosis for this admission?: Yes (2) Vaginal delivery Is this a current diagnosis for this admission?: Yes - Additional Information Resuscitation Status: Full Code Discharge Diet: Regular Discharge Activity: Activity As Tolerated, Pelvic Rest Referrals: LAWANDA ZAMAN MD [Primary Care Provider] - (wha 2 weeks check BP) HPI Gestational Age: 41.3 Reason(s) for Admission: Onset of Labor Procedures: Ultrasound Intrapartum Procedure(s): Spontaneous Vaginal Delivery Hospital Course Hospital Course: routine Results Laboratory Results: WBC 8.5 10^3/uL (4.0-10.5) 05/14/20 07:00 RBC 4.13 10^6/uL (3.72-5.28) 05/14/20 07:00 Hgb 11.2 g/dL (12.0-15.5) L 05/14/20 07:00 Hct 34.3 % (36.0-47.0) L 05/14/20 07:00 MCV 83 fl (80-97) 05/14/20 07:00 MCH 27.1 pg (27.0-33.4) 05/14/20 07:00 MCHC 32.7 g/dL (32.0-36.0) 05/14/20 07:00 RDW 16.5 % (11.5-14.0) H 05/14/20 07:00 Plt Count 165 10^3/uL (150-450) 05/14/20 07:00 Lymph % (Auto) 26.9 % (13-45) 05/13/20 02:48 [place] % (Auto) 8.2 % (3-13) 05/13/20 02:48 Eos % (Auto) 0.7 % (0-6) 05/13/20 02:48 Baso % (Auto) 0.6 % (0-2) 05/13/20 02:48 Absolute Neuts (auto) 4.5 10^3/uL (1.7-8.2) 05/13/20 02:48 Absolute Lymphs (auto) 1.9 10^3/uL (0.5-4.7) 05/13/20 02:48 Absolute Monos (auto) 0.6 10^3/uL (0.1-1.4) 05/13/20 02:48 Absolute Eos (auto) 0.1 10^3/uL (0.0-0.6) 05/13/20 02:48 Absolute Basos (auto) 0.0 10^3/uL (0.0-0.2) 05/13/20 02:48 Seg Neutrophils % 63.6 % (42-78) 05/13/20 02:48 Urine Color YELLOW 05/13/20 02:00 Urine Appearance CLOUDY 05/13/20 02:00 Urine pH 9.0 (5.0-9.0) 05/13/20 02:00 Ur Specific [place] 1.013 05/13/20 02:00 Urine Protein NEGATIVE mg/dL (NEGATIVE) 05/13/20 02:00 Urine Glucose (UA) NEGATIVE mg/dL (NEGATIVE) 05/13/20 02:00 Urine Ketones NEGATIVE mg/dL (NEGATIVE) 05/13/20 02:00 Urine Blood NEGATIVE (NEGATIVE) 05/13/20 02:00 Urine Nitrite NEGATIVE (NEGATIVE) 05/13/20 02:00 Urine Bilirubin NEGATIVE (NEGATIVE) 05/13/20 02:00 Urine Urobilinogen NEGATIVE mg/dL (<2.0) 05/13/20 02:00 Ur Leukocyte Esterase TRACE (NEGATIVE) H 05/13/20 02:00 Urine Ascorbic Acid NEGATIVE (NEGATIVE) 05/13/20 02:00 Urine Opiates Screen NEGATIVE 05/13/20 02:00 Urine Methadone Screen NEGATIVE 05/13/20 02:00 Ur Barbiturates Screen NEGATIVE 05/13/20 02:00 Ur Phencyclidine Scrn NEGATIVE 05/13/20 02:00 Ur Amphetamines Screen NEGATIVE 05/13/20 02:00 U Benzodiazepines Scrn NEGATIVE 05/13/20 02:00 Urine Cocaine Screen NEGATIVE 05/13/20 02:00 U Marijuana (THC) Screen NEGATIVE 05/13/20 02:00 RPR NONREACTIVE (NONREACTIVE) 05/13/20 02:48 Chlamydia DNA (PCR) NOT DETECTED (NOT DETECT) 05/13/20 02:00 N.gonorrhoeae DNA (PCR) NOT DETECTED (NOT DETECT) 05/13/20 02:00 Blood Type O POSITIVE 05/13/20 02:48 Antibody Screen NEGATIVE 05/13/20 02:48 Plan Health Concerns: normal pp, BP Plan of Treatment: discharge home Goals: no complications Time Spent: Less than 30 Minutes
[2020-05-15 12:08] VITALS: BP 132/82
--- NOTE | 2020-05-20 14:06 | Delivery Summary ---
Del Sum A-C Datetime Report Generated by CPN: 05/20/2020 14:05 DELIVERY PERSONNEL DELIVERY PERSONNEL: [id number] Delivery Doctor:: Keysha Saucedo MD Labor and Delivery Nurse:: Sade Smith, RNC Soft Crab Shedder/GUEST EXPERIENCE REPRESENTATIVE: Stephany Green, ST MATERNAL INFORMATION Delivery Anesthesia: Epidural Medications After Delivery: Pitocin Bolus-Please Comment Estimated Blood Loss (ml): 100 Delivery QBL: 100 Maternal Complications: None LABOR SUMMARY EDC: 05/03/2020 00:00 EDC: 05/03/2020 00:00 No. Babies in Womb: 1 Attempted: No Labor Anesthesia: Epidural LABOR INFORMATION Reason for Induction: Not Applicable Onset of Labor: 05/13/2020 00:35 Complete Dilatation: 05/13/2020 04:50 Oxytocin: N/A Group B Beta Strep: neg Antibiotics # of Doses: 0 Antibiotics Time of Last Dose: 0 Name of Antibiotic Given: 0 Steroids Given: None Reason Steroids Not Administered: Not Applicable MEMBRANES Membranes Rupture Method: Spontaneous Rupture of Membranes: 05/13/2020 04:17 Length of Rupture (hr): 1.13 Amniotic Fluid Color: Clear Amniotic Fluid Amount: Small Amniotic Fluid Odor: None STAGES OF LABOR Stage 1 hr: 4 Stage 1 min: 15 Stage 2 hr: 0 Stage 2 min: 35 Stage 3 hr: 0 Stage 3 min: 3 Total Time in Labor hr: 4 Total Time in Labor min: 53 VAGINAL DELIVERY Episiotomy: None Laceration #1: None Laceration Repair: Not Applicable Sponge Count Correct: Yes Sharps Count Correct: N/A BABY A INFORMATION Infant Delivery Date/Time: 05/13/2020 05:25 Method of Delivery: Vaginal Nurse Controlled Delivery: No Born in Route : No : N/A Forceps: N/A Vacuum Extraction: N/A Shoulder Dystocia : No PRESENTATION/POSITION BABY A Presentation: Cephalic Cephalic Presentation: Vertex Vertex Position: Left Occipital Anterior Breech Presentation: N/A PLACENTA INFORMATION BABY A Placenta Delivery Time : 05/13/2020 05:28 Placenta Method of Delivery: Spontaneous Placenta Status: Delivered SCORES BABY A Heart Rate 1 min: >100 bpm Resp Effort 1 min: Good Cry Reflex Irritability 1 min: Cough or Sneeze or Pulls Away Muscle Tone 1 min: Active Motion Color 1 min: Body [place], Extremities Blue Resuscitation Effort 1 min: Tactile Stimulation SCORE 1 MIN: 9 Heart Rate 5 min: >100 bpm Resp Effort 5 min: Good Cry Reflex Irritability 5 min: Cough or Sneeze or Pulls Away Muscle Tone 5 min: Active Motion Color 5 min: Body [place], Extremities Blue SCORE 5 MIN: 9 INFORMATION BABY A Gestational Age at Delivery: 41.3 Gestational Status: Late Term- 41- 41.6 Weeks Outcome : Liveborn Condition : Stable Sex: Male IDENTIFICATION BABY A Infant Verification Date/Time: 05/13/2020 05:43 ID Band Number: [id number] Mother's Name Verified: Yes Infant RN Verifying : D Jermainenculises RN/Stephany Green ST WEIGHT/LENGTH BABY A Birthweight (gm): 3601 Infant Weight (lb): 7 Infant Weight (oz): 15 Length (in): 20.00 Length (cm): 50.80 CORD INFORMATION BABY A No. Cord Vessels: 3 Nuchal Cord : N/A Cord Blood Taken: Yes-For Eval (Mom's Blood Type - or O+) Suction: Mouth ASSESSMENT BABY A Complications: None Physical Findings at Delivery: Within Normal Limits Respirations: Appears Normal Skin to Skin: No Airplane Technician/ALS Called : No Care By: Mejia Smith RN Transferred To: Remains with Mother BABY B INFORMATION : N/A SIGNATURES Signature: with User ID: [email or web address] : with User ID: [email or web address]
== END 2020-05-15 18:59 | disposition home or self-care (01) | DRG 807 ==
LOC: LC 01:45 → LR 03:33 → 2S 11:11
PROVIDERS: ADMIT Obstetrics & Gynecology; ATTEND Obstetrics & Gynecology
PROC: 10E0XZZ Delivery of Products of Conception, External Approach (ICD-10-PCS; principal; 2020-05-13)
DX: O98.32 Other infections with a predominantly sexual mode of transmission complicating childbirth (principal); Z37.0 Single live birth; Z3A.41 41 weeks gestation of pregnancy
CPT/HCPCS: 1967; 36415; 80307; 81005; 85025; 85027; 86592; 86850; 86900; 86901; 87491; 87591; J0456; J2590; J3010; J3490